=== PATIENT | female | born 1995 | race Caucasian/White ===

== ENCOUNTER 2018-09-29 22:34 | Emergency (ER) | payer OTHER, BC, MEDICAID ==
[~2018-09-29] VITALS: Ht 147.3 cm; Wt 63.1 kg
[~2018-09-29 22:34] MED LIST: ONDA8TAB9 PO
[2018-09-29 22:36] VITALS: BP 132/77
--- NOTE | 2018-09-29 22:46 | NUR ---
VERENA PEÑA CONTACTED AND EN ROUTE. ADVOCATE FROM [facility] WAS CONTACTED BY JEFFREY AND IS ALSO EN ROUTE.
--- NOTE | 2018-09-29 22:59 | NUR ---
ONE [address]AFE [address]ACE STAFF MEMBER WITH PT NOW.
[2018-09-30 00:37] LABS: CLARITY,URINE CLEAR (Clear); COLOR,URINE YELLOW (Yellow); GLUCOSE, URINE NEGATIVE (Neg); KETONES,URINE NEGATIVE (Neg); LEUKOCYTE ESTERASE ,URINE NEGATIVE (Neg); NITRITES, URINE NEGATIVE (Neg); OCCULT BLOOD,URINE NEGATIVE (Neg); PH,URINE 6.5 (4.8-8.0); PROTEIN,URINE NEGATIVE (Neg); UA COLLECTION TYPE VOIDED
[2018-09-30 00:38] LABS: URINE HCG NEGATIVE (NEG)
== END 2018-09-30 01:50 | disposition home or self-care (01) ==
LOC: EEVIPCON 22:35 → ER 22:35
DX: T74.21XA Adult sexual abuse, confirmed, initial encounter (principal); Z79.899 Other long term (current) drug therapy; Z59.0 Homelessness
CPT/HCPCS: 81003; 81025; 99284

== ENCOUNTER 2019-06-22 19:36 | Emergency (ER) | payer OTHER, MEDICAID ==
[~2019-06-22] VITALS: Ht 152.4 cm; Wt 67.8 kg
[2019-06-22 20:12] LABS: CLARITY,URINE CLEAR (Clear); COLOR,URINE YELLOW (Yellow); GLUCOSE, URINE NEGATIVE (Neg); KETONES,URINE NEGATIVE (Neg); LEUKOCYTE ESTERASE ,URINE NEGATIVE (Neg); NITRITES, URINE NEGATIVE (Neg); OCCULT BLOOD,URINE NEGATIVE (Neg); PROTEIN,URINE NEGATIVE (Neg)
[2019-06-22 20:13] LABS: UA COLLECTION TYPE CLN CATCH MIDSTREAM
[2019-06-22 20:14] LABS: URINE HCG NEGATIVE (NEG)
[2019-06-22] MEDS ORDERED: CEPH250T PO (21:39)
[2019-06-22] MEDS ORDERED: cephalexin 250mg capsule PO ONE (21:40)
[2019-06-22] MEDS ORDERED: phenazopyridine 100mg tablet PO ONE (21:40)
[2019-06-22 22:11] VITALS: BP 120/72
== END 2019-06-22 22:12 | disposition home or self-care (01) ==
LOC: ER 19:36
DX: R30.0 Dysuria (principal); R35.0 Frequency of micturition; R39.15 Urgency of urination; F12.90 Cannabis use, unspecified, uncomplicated; Z59.0 Homelessness; Z98.890 Other specified postprocedural states
CPT/HCPCS: 81003; 81025; 99283